=== PATIENT | male | born 1950 ===

== ENCOUNTER → 2020-02-18 | Emergency (ER) | payer SELFPAY ==
[~2020-02-18] VITALS: Ht 172.7 cm; Wt 106.6 kg
[~2020-02-18] MED LIST: CALCIUM CHLOR(10%) 100MG/ML 10ML SYRINGE IV ONE; EPINEPHrine HCL 1 MG/10 ML SYRG IV ONE; ETOMIDATE (2MG/ML) 20ML VIAL IV ONE; MORPHINE SULF INJ 2 MG/ML SYRINGE 1ML IV ONE; ONDANSETRON HCL 4 MG/2 ML VIAL IV ONE; SODIUM BICARBONATE 8.4% INJ 50ML SYRINGE IV ONE; SODIUM BICARBONATE 8.4% INJ 50ML SYRINGE ONE; SUCCINYLCHOLINE CHLORIDE 20 MG/ML 10ML VIAL IV ONE
[2020-02-18 19:12] VITALS: BP 131/73
[2020-02-18 19:38] LABS: Basophils # (auto) 0 10 ^3/uL (0-0.2); Basophils % (auto) 0.6 % (0.0-2.0); Eosinophils # (auto) 0 10 ^3/uL (0-0.8); Eosinophils % (auto) 0.2 % (0.0-7.0); Hematocrit 36.1 % (41.0-53.0); Hemoglobin 12.2 g/dL (13.5-17.5); Lymphocytes # (auto) 1.5 10 ^3/uL (0.4-5.4); Lymphocytes % (auto) 19.8 % (10.0-50.0); Mean Corpuscular Hemoglobin 29.8 pg (28.0-32.0); Mean Corpuscular Hgb Conc. 33.7 g/dL (32.0-36.0); Mean Corpuscular Volume 88.5 fL (80.0-100.0); Monocytes # (auto) 0.7 10 ^3/uL (0-1.3); Monocytes % (auto) 9.3 % (0.0-12.0); Neutrophils # (auto) 5.4 10 ^3/uL (1.6-8.6); Neutrophils % (auto) 70.1 % (37.0-80.0); Nucleated Red Blood Cells % 0.1 %; Platelet Count (auto) 175 10^3/uL (140-450); Red Blood Cells 4.08 10^6/uL (4.5-5.90); Red Cell Distribution Width 13.8 % (11.8-14.3); White Blood Cell 7.6 10^3/uL (4.4-10.8)
[2020-02-18 19:50] LABS: Alanine Aminotransferase 18 U/L (16-61); Alkaline Phosphatase 109 U/L (45-117); Anion Gap 6 (5-15); Aspartate Aminotransferase 16 U/L (15-37); BUN/Creatinine Ratio 12.5; Blood Urea Nitrogen 17 mg/dL (7-18); Calcium 8.2 mg/dL (8.5-10.1); Carbon Dioxide 26 mmol/L (21-32); Chloride 106 mmol/L (98-107); GFR African American 67 mL/min; GFR Non-African American 55 mL/min; Glucose 124 mg/dL (74-106); Potassium 3.2 mmol/L (3.5-5.1); Sodium 138 mmol/L (136-145)
[2020-02-18 19:51] LABS: Albumin 3.2 g/dL (3.4-5.0); Bilirubin, Total 0.4 mg/dL (0.2-1.0); Total Protein 7.2 g/dL (6.4-8.2)
[2020-02-18 20:52] LABS: INR 1.07 (0.9-1.15); Partial Thromboplastin Time 23.4 sec (23.0-31.2)
== END | disposition home or self-care (01) ==
LOC: ER 18:24 → EDBD 18:24
DX: I46.9 Cardiac arrest, cause unspecified (principal); I10 Essential (primary) hypertension; E78.5 Hyperlipidemia, unspecified; Z88.0 Allergy status to penicillin
CPT/HCPCS: 31500; 36415; 71045; 80053; 83735; 83880; 84443; 84484; 85025; 85379; 85610; 85730; 92950; 93005; 99291; J0171; J0330